=== PATIENT | female | born 1935 | race Caucasian/White ===

== ENCOUNTER → 2017-09-27 17:25 | Outpatient (REF) | payer MEDICARE, SELFPAY | LOC: LAB 17:25 | PROVIDERS: Visit Provider Dermatology | DX: D04.9 Carcinoma in situ of skin, unspecified (principal); L98.8 Other specified disorders of the skin and subcutaneous tissue; L24.4 Irritant contact dermatitis due to drugs in contact with skin; T49.8X5A Adverse effect of other topical agents, initial encounter | CPT/HCPCS: 87070; 87075; 87205 ==

== ENCOUNTER 2023-12-21 12:59 | Day surgery (SDC) | payer MEDICARE, SELFPAY ==
--- NOTE | 2023-12-21 | PATH_ITS ---
[facility] Accession Number: [id number] No. of containers..01 Tissue . 01 Material submitted: . toe - LEFT GREAT TOE, GOUTY TOFUS . 01 Diagnosis: LEFT GREAT TOE, GOUTY TOPHUS, BIOPSY: Histologic features consistent with gout, please see comment. MRV 12/23/2023 1505 Local . 01 Comment: The biopsy shows nodular aggregates of acellular, amorphous, and pale eosinophilic material. The eosinophilic material is positive for monosodium urate crystals, on crystal analysis performed on a slide. . The described features are consistent with gout. . Clinical and serologic correlation with serum uric acid levels is recommended. . 01 Electronically signed: . Mariana Suazo MD, Pathologist NPI- [id number] . 01 Gross description: . Specimen is received fresh, labeled with two patient identifiers and left great toe gouty tophus, and consists of a 1.5 x 0.3 x 0.1 cm aggregate of white to slightly blood-tinged, chalky-like material which is scraped from a Telfa pad and entirely submitted in cassette A1. Additionally prepared is a smear prep and is sent for crystal analysis. Crystal analysis is performed and present on slide as monosodium urate (MSV) read out on 12/22/2023. ([id number]) /MRV 12/22/2023 1302 Local . 01 Pathologist provided ICD-10: M10.9 . 01 CPT . 995052 Specimen Comment: A courtesy copy of this report has been sent to [phone] Performed at: [address] [facility] [address], [place], [place] [id number] MD Kosta Correa MD Phone: [phone]
--- NOTE | 2023-12-21 13:17 | SUR.PREOP ---
pt requests rx hard copy
[2023-12-21] MEDS: LACTATED RINGERS 1,000 ML 100 ML IV (13:31)
[2023-12-21 13:33] VITALS: BP 190/80; PULSE 81; RESP 16; TEMP 36.6; O2SAT 97; BMI 24.9
--- NOTE | 2023-12-21 13:50 | SUR.PREOP ---
PT REQUESTING NO IV. WILL TALK WITH ANESTHESIA.
--- NOTE | 2023-12-21 14:01 | PM.PREOP ---
Pre-operative Note Interval Note History & Physical reviewed/Exam performed by Physician: Yes Changes to H&P: No
--- NOTE | 2023-12-21 14:05 | SUR.OPER ---
Supine on padded OR bed, head on pillow, arms secured on padded arm boards at <90 degrees abduction, legs uncrossed, safety belt at thigh, tape over blanket over lower legs.
[2023-12-21] MEDS: CEFAZOLIN 2 GM/100 ML PREMIX 100 ML IV (14:29)
[2023-12-21] MEDS: LIDOCAINE 1% W/EPI 20 ML INJ (14:45)
[2023-12-21 14:54] VITALS: BP 145/67; PULSE 75; RESP 12; TEMP 36.6; O2SAT 96
--- NOTE | 2023-12-21 14:54 | PM.OP.1 ---
Operative Date/Time/Diagnoses Date of procedure: 12/21/23 Time of procedure: 14:56 Pre-op diagnosis: Subcutaneous tophaceous gout, ulcerative gout left great toe Post-op diagnosis: same Procedure & Clinicians Procedure: Debridement skin subcutaneous tissue initial 20 sq cm or less CPT code 05122 Same procedure as scheduled: Yes Indications: Patient is a 88-year-old female with chronic gout and an elevated uric acid. She presents with a 1 week onset of increasing pain swelling and white material directly below the skin along her IP joint of her left great toe. She has chronic tophaceous gout but this is a new immediately subcutaneous collection that is desquamated the skin and is an impending ulcerative lesion. She was indicated for irrigation debridement of the gouty tophi to reduce the risk of ulceration and infection. She understands risks of recurrence risks of need for ongoing treatment of her elevated uric acid and potential for wound healing problems or need for additional wound care for additional treatment. The risks and benefits of the procedure have been discussed with the patient and given the opportunity to ask questions. The risks of surgery include but are not limited to infection, persistence of pain, need for additional procedure, wound care damage to nerves and blood vessels, posttraumatic arthritis, DVT, PE, cardiopulmonary complications and . The patient expressed a thorough understanding of the risks and benefits of surgery and has elected to proceed. Consent was signed. Surgeon: Jennifer Arguello Click Yes if Unassisted: Yes Anesthesia Type: General and Local Operative Notes Findings: Milky tophaceous gout immediately subcutaneous this dissected the epidermis causing a desquamation of a 3 x 2 cm area along the medial left great toe IP joint. 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 Closure Type: primary Specimen(s): other (Gouty fluid sent for pathology, fresh without fixative. Culture sent for aerobic and anaerobic) Estimated Blood Loss (mL): 1 Blood products transfused: none Tourniquet time (min): 0 Procedure in detail: Patient was seen in the preoperative area the site of surgery was marked this was the left great toe. Informed consent was confirmed. The patient has spoke with the anesthesiologist and the surgical team. The patient underwent a local block with 10 cc of 1% lidocaine with epinephrine in the preprocedure room she wished to have minimal general anesthetic. She was noted to tolerate the medication well and had a steady heart rate and vital signs. She was brought back to the operating room by the anesthesia personnel a light general anesthetic was administered. The patient and the left leg was prepped and draped in the standard sterile fashion a formal time-out procedure was performed confirming the patient side and site of surgery administration of appropriate preoperative antibiotics all were in agreement. Attention was turned to the left great toe. Some additional 1% lidocaine with epinephrine 5 cc was administered around the area of planned surgery and the gouty ulcerative lesion. Next a skin blade was used to sharply incise the ulcerative lesion this expressed a milky gouty liquid this was sent for pathology and culture. Next the scalpel was used to excise the desquamated skin and subcutaneous tissue for a total area of 3 x 2 cm. There was some intact underlying dermis. There was a small area of connecting deeper gouty tophus that was incised and debrided using a curette and rongeur and scalpel blade sharply. Pressure was applied to this area until no further gouty material was able to be expressed. Once this was completed the wound was irrigated with sterile saline. No bone or joint was encountered. Hemostasis was achieved. The wound was sealed with Dermabond skin glue and a sterile dressing was applied with Telfa clean and Coban. Patient tolerated the procedure well. All counts were correct. The patient was awoken from anesthesia and taken to the recovery room in good condition there were no immediate complications from this procedure. Counts were correct. Complications: none Post-operative Condition: stable Disposition: PACU Plan for aftercare: Weightbear as tolerated. May remove dressing in 3 days and shower. Follow up in 2 weeks. Encouraged to try the allopurinol for elevated uric acid and establish care with Rheumatology. Referral has been placed.
[2023-12-21 14:59] VITALS: BP 145/62; PULSE 72; RESP 16; O2SAT 96
[2023-12-21 15:05] VITALS: BP 163/65; PULSE 70; RESP 12; O2SAT 99
[2023-12-21 15:09] VITALS: BP 175/70; PULSE 70; RESP 12; TEMP 36.7; O2SAT 97
[2023-12-21 15:15] VITALS: BP 157/64; PULSE 65; RESP 14; TEMP 36.7; O2SAT 98
== END 2023-12-21 15:39 | disposition home or self-care (01) ==
PROVIDERS: PCP Nurse Practitioner Family; Referring Provider Orthopaedic Surgery Foot and Ankle Surgery; Visit Provider Orthopaedic Surgery Foot and Ankle Surgery
PROC: (CPT 28039; principal; 2023-12-21 14:30)
DX: M1A.9XX1 Chronic gout, unspecified, with tophus (tophi) (principal); M79.672 Pain in left foot; M79.671 Pain in right foot
CPT/HCPCS: 28039; J0690; J1100; J2405; J2704